=== PATIENT | male | born 1960 | race Caucasian/White ===

== ENCOUNTER 2024-06-21 02:03 | Emergency (ER) | payer OTHER ==
[~2024-06-21] VITALS: Ht 182.9 cm; Wt 99.9 kg
[2024-06-21] MEDS ORDERED: ATORVASTATIN CA80 MG PO (02:17)
[2024-06-21] MEDS ORDERED: SYNTHROID175 MCG PO (02:18)
[2024-06-21] MEDS ORDERED: BENICAR HCT 12.1 TAB PO (02:37)
[2024-06-21] MEDS ORDERED: NS 1,000 ML IV SCH (02:45)
[2024-06-21] MEDS ORDERED: Hyoscyamine 0.125 MG Sublingual TAB PO ONE (02:45)
[2024-06-21] MEDS ORDERED: fentaNYL 100 MCG/2 ML VIAL IV ONE (02:45)
[2024-06-21 03:06] LABS: BASO # 0.01 K/mm3 (0.02-0.10); EOS # 0.08 K/mm3 (0.04-0.40); EOS % 0.6 % (0.0-4.0); HEMATOCRIT 41.1 % (42.0-52.0); HEMOGLOBIN 14.3 g/dL (13.5-18.0); LYMPH# 0.98 K/mm3 (1.50-4.00); MEAN CELL VOLUME 95 fl (78-100); MEAN CORPUSCULAR HEMOGLOBIN 33 pg (27-31); MEAN CORPUSCULAR HGB CONC 35 g/dL (33-37); MEAN PLATELET VOLUME 9.2 fl (7.4-10.4); MONO # 1.03 K/mm3 (0.20-0.80); NEU # 10.28 K/mm3 (1.40-6.50); PLATELET COUNT 261 K/mm3 (130-400); RED BLOOD COUNT 4.32 M/mm3 (4.20-5.60); RED CELL DISTRIBUTION WIDTH 12.6 % (11.5-14.5); WHITE BLOOD COUNT 12.4 K/mm3 (4.8-10.8)
[2024-06-21 03:15] LABS: ALBUMIN 4.2 g/dL (3.4-4.8)
[2024-06-21] MEDS ORDERED: Ondansetron 4 MG/2 ML VIAL IV ONE (03:15)
[2024-06-21 03:16] LABS: CALCIUM 9.3 mg/dL (8.3-10.5)
[2024-06-21 03:17] LABS: TOTAL PROTEIN 6.9 g/dL (6.2-8.1)
[2024-06-21 03:19] LABS: TOTAL BILIRUBIN 0.6 mg/dL (0.2-1.2)
[2024-06-21 03:24] LABS: MAGNESIUM 2.01 mg/dL (1.60-2.60)
[2024-06-21] MEDS ORDERED: ONDANSETRON HYDR4 MG PO (03:55)
[2024-06-21] MEDS ORDERED: HYOSCYAMINE0.125 M7 PO (03:55)
[2024-06-21] MEDS ORDERED: Home Ondansetron ODT 4 MG #2 ODT/PACK PO ONE (04:00)
[2024-06-21 04:06] VITALS: BP 136/82
== END 2024-06-21 04:06 | disposition home or self-care (01) ==
LOC: ED 02:03
PROVIDERS: Physician Assistant
DX: R25.2 Cramp and spasm (principal); R79.89 Other specified abnormal findings of blood chemistry
CPT/HCPCS: J3010; J7030